=== PATIENT | female | born 1990 | race Two or more races ===

== ENCOUNTER 2017-08-27 05:36 | Inpatient (IN) ==
[2017-08-27] MEDS ORDERED: CITRIC ACID/SODIUM CITRATE 30 ML UDCUP PO ONE (05:55)
[2017-08-27] MEDS ORDERED: ceFAZolin 2,000 MG in PREMIX 1 EACH IV ONE (05:55)
[2017-08-27] MEDS ORDERED: FAMOTIDINE 20 MG/2 ML VIAL IV ONE (05:55)
[2017-08-27] MEDS: LACTATED RINGERS 1,000 ML IV SCH (06:16)
[2017-08-27 06:20] LABS: Basophils # 0.1 10*3/uL (0.0-0.2); Basophils % 0.6 % (0.0-0.8); Eosinophils # 0.7 10*3/uL (0.0-0.87); Hematocrit 32.4 VOL% (35.7-47.0); Hemoglobin 10.5 GM/DL (12.0-16.0); Immature Granulocytes % 4.7 %; Immature Granulocytes Absolute 0.76 #; Lymphocytes # 3.4 10*3/uL (1.4-4.0); Lymphocytes % 21.2 % (21.3-54.2); Mean Corpuscular HGB Conc 32.4 GM/DL (32-36); Mean Corpuscular Hemoglobin 27 PG (27-34); Mean Corpuscular Volume 83.9 FL (87-102); Monocytes % 6.5 % (1.7-12.7); Neutrophils # 10.1 10*3/uL (1.4-7.4); Platelet Count 297 T/CUMM (130-400); Red Blood Count 3.86 MC/CUMM (3.8-5.5); White Blood Count 16.1 T/CUMM (4-12)
[2017-08-27] MEDS ORDERED: CLINDAMYCIN INJ 900 MG in PREMIX 1 EACH IV ONE (06:30)
[2017-08-27] MEDS ORDERED: OXYTOCIN/LR 20 UNIT/1,000 ML BAG IV ONE ×2 (06:32→08:20)
[2017-08-27 06:54] LABS: Eosinophils 5 % (0-10); Lymphocytes 22 % (20-55); Myelocytes 1 %; Segmented Neutrophils 62 % (50-85); Total Cells Counted 100
[2017-08-27 07:08] LABS: Hypochromasia 1+; Microcytosis 1+; Platelet Estimate Normal
[2017-08-27] MEDS ORDERED: OXYTOCIN/D5LR 20 UNIT/1,000 ML PREMIX IV ONE (07:30)
[2017-08-27] MEDS ORDERED: GENTAMICIN INJ 80 MG in PREMIX 1 EACH IV ONE (07:30)
[2017-08-27] MEDS ORDERED: ONDANSETRON 4 MG/2 ML VIAL IV PRN (08:20)
[2017-08-27] MEDS ORDERED: BENZOCAINE 20%/MENTHOL 0.5% SPRAY 56 GM CAN TOP PRN (08:20)
[2017-08-27] MEDS ORDERED: LANOLIN 50% CREAM 0.3 OZ TUBE TOP PRN (08:20)
[2017-08-27] MEDS ORDERED: HYDROCORTISONE 2.5% RECTAL CREAM 30 GM TUBE TOP PRN (08:20)
[2017-08-27] MEDS ORDERED: BISACODYL 10 MG SUPP RECTAL PRN (08:20)
[2017-08-27] MEDS ORDERED: ACETAMINOPHEN 325 MG TABLET PO PRN (08:20)
[2017-08-27] MEDS ORDERED: oxyCODONE/ACETAMINOPHEN 5-325 MG TABLET PO PRN ×2 (08:20)
[2017-08-27] MEDS ORDERED: WITCH HAZEL PADS 100/JAR TOP PRN (08:20)
[2017-08-27] MEDS ORDERED: fentaNYL 100 MCG/2 ML VIAL ONE (08:29)
[2017-08-27] MEDS ORDERED: MIDAZOLAM 2 MG/2 ML VIAL ONE (08:29)
[2017-08-27] MEDS ORDERED: MORPHINE 10 MG/10 ML VIAL ONE (08:30)
[2017-08-27] MEDS ORDERED: ONDANSETRON 4 MG/2 ML VIAL ONE (08:38)
[2017-08-27] MEDS ORDERED: PROMETHAZINE 25 MG/1 ML VIAL ONE (08:38)
[2017-08-27] MEDS ORDERED: DIPH/TET/ACEL PERT BOOSTER VACCINE 0.5 ML VIAL IM ONE (09:00)
[2017-08-27] MEDS ORDERED: RHO(D) IMMUNE GLOBULIN 300 MCG SYRINGE IM ONE (09:00)
[2017-08-27] MEDS ORDERED: MEASLES/MUMPS/RUBELLA VACCINE 0.5 ML VIAL SUBCUT ONE (09:00)
[2017-08-27] MEDS: diphenhydrAMINE 50 MG/1 ML VIAL IV PRN ×2 (09:24→15:47)
[2017-08-27] MEDS ORDERED: hydrOXYzine HCL 25 MG/1 ML VIAL IM PRN (20:38)
[2017-08-27] MEDS: DOCUSATE SODIUM 100 MG CAPSULE PO SCH (21:33)
[2017-08-28] MEDS: CLINDAMYCIN INJ 900 MG in PREMIX 1 EACH IV SCH ×3 (00:08→08:31)
[2017-08-28 01:30] LABS: Apearance,Urine CLEAR (Clear); Bilirubin,Urine Negative (Negative); Blood, Urine Negative (Negative); Glucose,Urine (UA) Negative (Negative); Ketones,Urine Negative (Negative); Mucus,Urine Occasional /LPF (Occasional); Nitrite,Urine Negative (Negative); Protein,Urine Negative; RBC,Urine <1 /HPF (0-4); Urine Color Straw (Yellow); Urine Urobilinogen < 2.0 EU/DL (0.2-1.0); WBC,Urine 2 /HPF (0-6)
[2017-08-28 04:43] LABS: Basophils # 0.1 10*3/uL (0.0-0.2); Basophils % 0.6 % (0.0-0.8); Eosinophils # 0.7 10*3/uL (0.0-0.87); Eosinophils % 4.3 % (0.00-10.9); Hematocrit 31.9 VOL% (35.7-47.0); Hemoglobin 10.2 GM/DL (12.0-16.0); Immature Granulocytes Absolute 0.79 #; Lymphocytes # 2.2 10*3/uL (1.4-4.0); Lymphocytes % 14.3 % (21.3-54.2); Mean Corpuscular Hemoglobin 27 PG (27-34); Mean Corpuscular Volume 83.7 FL (87-102); Mean Platelet Volume 9.3 FL (9.6-12.0); Monocytes # 1.3 10*3/uL (0.11-0.8); Monocytes % 8.4 % (1.7-12.7); Neutrophils # 10.6 10*3/uL (1.4-7.4); Neutrophils % 67.4 % (38.7-73.9); Platelet Count 245 T/CUMM (130-400); Red Blood Count 3.81 MC/CUMM (3.8-5.5); Red Cell Distribution Width 14.1 % (9.3-17.3); White Blood Count 15.7 T/CUMM (4-12)
[2017-08-28] MEDS: SIMETHICONE CHEW 80 MG TABLET PO PRN ×2 (05:20→21:18)
[2017-08-28] MEDS: LACTATED RINGERS 1,000 ML IV SCH (06:49)
[2017-08-28 07:05] LABS: Eosinophils 2 % (0-10); Lymphocytes 15 % (20-55); Segmented Neutrophils 70 % (50-85); Total Cells Counted 100
[2017-08-28 07:06] LABS: Hypochromasia 1+; Platelet Estimate Adequate
[2017-08-28] MEDS: DOCUSATE SODIUM 100 MG CAPSULE PO SCH ×3 (08:28→21:18)
[2017-08-28] MEDS: MULTIVITAMIN (PRENATAL) TABLET PO SCH (08:31)
[2017-08-28] MEDS: IBUPROFEN 800 MG TABLET PO PRN (21:18)
[2017-08-28] MEDS: MAGNESIUM HYDROXIDE SUSP 30 ML UDCUP PO PRN (21:18)
[2017-08-29] MEDS: IBUPROFEN 800 MG TABLET PO PRN (06:49)
[2017-08-29 07:57] VITALS: BP 113/68
[2017-08-29] MEDS: DOCUSATE SODIUM 100 MG CAPSULE PO SCH (08:12)
[2017-08-29] MEDS: SIMETHICONE CHEW 80 MG TABLET PO PRN (08:12)
[2017-08-29] MEDS: MAGNESIUM HYDROXIDE SUSP 30 ML UDCUP PO PRN (08:12)
[2017-08-29] MEDS: MULTIVITAMIN (PRENATAL) TABLET PO SCH (08:12)
[2017-08-29] MEDS ORDERED: INFLUENZA VIRUS VACCINE 0.5 ML SYRINGE IM ONE (09:39)
== END 2017-08-29 13:45 | disposition home or self-care (01) | DRG 766 ==
LOC: N.LDOUT 05:36 → N.LD 05:41 → N.OB 11:05
PROVIDERS: ADMIT Specialist; ATTEND Specialist
PROC: LDCSECT (ICD-10-PCS; 2017-08-27 08:55)